=== PATIENT | female | born 1970 | race Two or more races ===

== ENCOUNTER 2018-11-11 07:00 | Day surgery (SDC) | payer OTHER ==
[~2018-11-11] VITALS: Ht 160 cm; Wt 52.6 kg
== END 2018-11-12 08:00 | disposition home or self-care (01) ==
LOC: EDSTATUS 07:00 → SURH 07:00 → CIR.AMB 07:00 → SURH 07:15 → O/R 07:15 → CIR.AMB 09:30 → EDSTATUS 10:54 → SURH 10:55 → O/R 13:31 → SURH 13:31 → CIR.AMB 11-12 08:00 → SURH 11-12 13:38 → O/R 11-12 13:38
DX: C50.412 Malignant neoplasm of upper-outer quadrant of left female breast (principal); Z17.0 Estrogen receptor positive status [ER+]

== ENCOUNTER 2018-12-23 05:20 | Day surgery (SDC) | payer OTHER | END 2018-12-23 14:00 | disposition home or self-care (01) | LOC: CIR.AMB 05:20 | PROVIDERS: Plastic Surgery | PROC: 0HRV0JZ Replacement of Bilateral Breast with Synthetic Substitute, Open Approach (ICD-10-PCS; 2018-12-23) | PROC: 0HQT0ZZ Repair Right Breast, Open Approach (ICD-10-PCS; 2018-12-23) | PROC: 0H0V0JZ Alteration of Bilateral Breast with Synthetic Substitute, Open Approach (ICD-10-PCS; 2018-12-23) | PROC: 0HPU0JZ Removal of Synthetic Substitute from Left Breast, Open Approach (ICD-10-PCS; principal; 2018-12-23 07:00) | DX: N65.1 Disproportion of reconstructed breast (principal); Z90.12 Acquired absence of left breast and nipple | CPT/HCPCS: 19342; 19330; 19316; 19366; C1789 ==

== ENCOUNTER 2019-10-16 06:00 | Day surgery (SDC) | payer OTHER ==
[~2019-10-16 06:00] MED LIST: TAMOXIFEN CITRA10 MG PO
== END 2019-10-16 12:45 | disposition home or self-care (01) ==
LOC: CIR.AMB 06:00
PROVIDERS: ATTEND Plastic Surgery
DX: C50.412 Malignant neoplasm of upper-outer quadrant of left female breast (principal); Z41.1 Encounter for cosmetic surgery; Z90.12 Acquired absence of left breast and nipple